=== PATIENT | female | born 2000 | race Caucasian/White ===

== ENCOUNTER 2022-05-12 08:03 | Outpatient (CLI) | payer BC, MEDICAID, SELFPAY ==
--- NOTE | 2022-05-12 08:09 | US_ITS ---
WS: [id number] EARLY OBSTETRICAL ULTRASOUND (<14 WEEKS). HISTORY: /MISSED PERIOD COMPARISON: None available. Single intrauterine gestational sac is identified. Cardiac activity at 153 BPM. [place]-rump length sudheer sures 1.3 cm which corresponds to a gestation of 7w4d. Normal-appearing yolk sac and amnion demonstra brayden. No subchorionic hemorrhage. No free fluid. Ovaries are normal size. There is a large cyst within the LEFT adnexa inseparable from the ovary. The re is fluid surrounding the ovary. Cyst measures 5.3 x 5.7 x 4.8 cm. US/US OB <=14 wk fetus w transvag IMPRESSION: 1. Single intrauterine gestation of 7 weeks 4 days with an EDC of 12/25/2022. 2. Large LEFT adnexal cyst measuring 5.3 x 5.7 x 4.8 cm. Due to the large size of the cyst there is increased risk for ovarian torsion.
== END 2022-05-12 08:04 | disposition home or self-care (01) ==
LOC: RAD 08:04
PROVIDERS: Visit Provider Family Medicine
DX: Z33.1 Pregnant state, incidental (principal); N91.2 Amenorrhea, unspecified
CPT/HCPCS: 76801; 76817

== ENCOUNTER 2022-06-11 14:17 | Outpatient (CLI) | payer BC, MEDICAID, SELFPAY ==
--- NOTE | 2022-06-11 14:22 | US_ITS ---
WS: [id number] EARLY OBSTETRICAL ULTRASOUND (<14 WEEKS). HISTORY: FIRST TRIMESTER VAGINAL BLEEDING COMPARISON: 05/12/2022 Only transabdominal imaging is submitted. Intrauterine gestation is identified. Gestational sac is ir regular shaped. There is a crown-rump length present measuring 2.1 cm. This corresponds to a gestatio n of 8 weeks and 6 days. Very minimal growth of the crown-rump length since the prior ultrasound. The re is no cardiac activity. No free fluid. US/US OB <= 14 weeks fetus [id number] IMPRESSION: 1. No cardiac activity and growth is not concordant from the prior study. Cons istent with embryonic demise. 2. Sac is irregular shaped.
== END 2022-06-11 14:18 | disposition home or self-care (01) ==
LOC: RAD 14:18
PROVIDERS: Visit Provider Family Medicine
DX: O46.91 Antepartum hemorrhage, unspecified, first trimester (principal); Z3A.08 8 weeks gestation of pregnancy
CPT/HCPCS: 76801